=== PATIENT | male | born 1995 | race Hispanic/Latino ===

== ENCOUNTER 2016-10-20 23:31 | Emergency (ER) | payer SELFPAY ==
[2016-10-20 23:45] VITALS: TEMP 98.7; O2SAT 99; BMI 35.8
[2016-10-21] MEDS ORDERED: Sodium Chloride 0.9% 1,000 ML IV STA (00:17)
--- NOTE | 2016-10-21 00:23 | ED PDOC ---
Arrival/HPI - General Chief Complaint: Chest Pain Time Seen by Provider: 10/21/16 00:02 Historian: Patient - History of Present Illness Narrative History of Present Illness (Text): 10/21/16 00:20 21 y/o male, no significant pmh, nkda, c/o lt. sided chest pain and shortness of breath for the past 6 days. Aching pain, aggravated by movement that causes chest pain, shortness of breath causes by the onset of chest pain, no dizziness , non radiating, no numbness or tingling, no other medical or psychological complaints. Past Medical History - Provider Review Nursing Documentation Reviewed: Yes - Infectious Disease Hx of Infectious Diseases: None - Psychiatric Hx Substance Use: No - Anesthesia Hx Anesthesia: No Family/Social History - Physician Review Nursing Documentation Reviewed: Yes Family/Social History: Unknown Family HX Smoking Status: Never Smoked Hx Alcohol Use: No Hx Substance Use: No Allergies/Home Meds Allergies/Adverse Reactions: Allergies No Known Allergies Allergy (Verified 10/20/16 23:45) Home Medications: Home Meds Medication Instructions Recorded Confirmed No Known Home Med 10/21/16 10/21/16 Review of Systems - Review of Systems Constitutional: absent: Fatigue, Fevers Eyes: absent: Vision Changes ENT: absent: Hearing Changes Respiratory: SOB. absent: Cough, Sputum Cardiovascular: Chest Pain Gastrointestinal: absent: Abdominal Pain, Diarrhea, Nausea, Vomiting Musculoskeletal: absent: Arthralgias, Back Pain Skin: absent: Rash, Pruritis, Skin Lesions Neurological: absent: Headache, Dizziness, Focal Weakness, Gait Changes Physical Exam Vital Signs Reviewed: Yes Vital Signs Temp Pulse Resp BP Pulse Ox 10/21/16 02:34 86 16 127/80 99 10/20/16 23:45 98.7 F 79 18 143/96 H 99 Temperature: Afebrile Blood Pressure: Hypertensive Pulse: Regular Respiratory Rate: Normal Appearance: Positive for: Well-Appearing, Non-Toxic, Comfortable Pain Distress: Moderate Mental Status: Positive for: Alert and Oriented X 3 - Systems Exam Head: Present: Atraumatic, Normocephalic Pupils: Present: PERRL Extroacular Muscles: Present: EOMI Conjunctiva: Present: Normal Mouth: Present: Moist Mucous Membranes Neck: Present: Normal Range of Motion Respiratory/Chest: Present: Clear to Auscultation, Good Air Exchange. No: Respiratory Distress, Accessory Muscle Use Cardiovascular: Present: Regular Rate and Rhythm, Normal S1, S2, Other (no pedal edema). No: Murmurs Abdomen: Present: Normal Bowel Sounds. No: Tenderness, Distention, Peritoneal Signs Back: Present: Normal Inspection Upper Extremity: Present: Normal Inspection. No: Cyanosis, Edema Lower Extremity: Present: Normal Inspection. No: Edema Neurological: Present: GCS=15, Speech Normal, Motor Func Grossly Intact, Gait Normal, Memory Normal Skin: Present: Warm, Dry, Normal Color. No: Rashes Psychiatric: Present: Alert, Oriented x 3, Normal Insight, Normal Concentration Medical Decision Making ED Course and Treatment: 10/21/16 00:22 -labs -ekg/cxr -IVF/toradol 10/21/16 01:55 -EKG:NSR @ 81 BPM, no ST elevation or depression, no T wave inversion. -Chest x-ray show no acute findings -Labs show no acute findings -Pt. has no cardiopulmonary complaints in the ER -Discharge home with education on follow up with your own pmd and office clerk assistant for holter monitoring plus echocardiogram, no gym or exercise until clear by your own office clerk assistant and pmd, return to the ER for any new or worsening signs or symptoms. - Lab Interpretations Lab Results: 10/21/16 00:55 10/21/16 00:55 Lab Results 10/21/16 00:55: Free T4 1.02, TSH 3rd Generation 4.70 H 10/21/16 00:55: Sodium 138, Potassium 3.8, Chloride 100, Carbon Dioxide 27, Anion Gap 15, BUN 20, Creatinine 1.0, Est GFR ( Amer) > 60, Est GFR (Non- Af Amer) > 60, Random Glucose 94, Calcium 9.2, Magnesium 2.2, Total Bilirubin 0.6, AST 23, ALT 42, Alkaline Phosphatase 54, Lactate Dehydrogenase 437, Total Creatine Kinase 83, Troponin I < 0.01, Total Protein 7.7, Albumin 4.5, Globulin 3.2, Albumin/Globulin Ratio 1.4 10/21/16 00:55: D-Dimer, Quantitative 0.25 10/21/16 00:55: WBC 8.4, RBC 5.07, Hgb 14.6, Hct 42.5, MCV 83.8, MCH 28.8, MCHC 34.4, RDW 12.6, Plt Count 233, MPV 9.4, Gran % 52.8, Lymph % (Auto) 39.6 H, Jones % (Auto) 5.1, Eos % (Auto) 2.3, Baso % (Auto) 0.2, Gran # 4.40, Lymph # 3.3 , Jones # 0.4, Eos # 0.2, Baso # 0.02 I have reviewed the lab results: Yes Interpretation: No clinic. lab abnormalty - RAD Interpretation Radiology Orders: 10/21/16 00:17 CHEST PORTABLE [RAD] Stat no active disease Water Jet Operator: Radiologist - EKG Interpretation EKG Interpretation (Text): 10/21/16 00:22 NSR @ 81 BPM, no ST elevation or depression, no T wave inversion. Interpreted by ED Physician: Yes Type: 12 lead EKG - Medication Orders Current Medication Orders: Discontinued Medications Sodium Chloride (Sodium Chloride 0.9%) 1,000 mls @ 999 mls/hr IV .Q1H1M STA Stop: 10/21/16 01:17 Last Admin: 10/21/16 01:00 Dose: 999 mls/hr Ketorolac Tromethamine (Toradol) 30 mg IVP STAT STA Stop: 10/21/16 00:20 Last Admin: 10/21/16 01:00 Dose: 30 mg Re-Assess: SUSAN Pain Assessment Document 10/21/16 02:00 SC (Rec: 10/21/16 02:39 [facility]) Pain Reassessment Is this a pain reassessment? Yes Sleep Is patient sleeping during reassessment? No Presence of Pain Presence of Pain No Ketorolac Tromethamine (Toradol) Confirm Administered Dose 30 mg .ROUTE .STK- MED ONE Stop: 10/21/16 04:51 - PA / YEAST FERMENTATION ATTENDANT / Resident Statement MD/DO has reviewed & agrees with the documentation as recorded. Disposition/Present on Arrival - Present on Arrival Any Indicators Present on Arrival: No History of DVT/PE: No History of Uncontrolled Diabetes: No Urinary Catheter: No History of Decub. Ulcer: No History Surgical Site Infection Following: None - Disposition Have Diagnosis and Disposition been Completed?: Yes Diagnosis: Atypical chest pain Disposition: HOME/ ROUTINE Disposition Time: 00:23 Patient Plan: Discharge Condition: GOOD Discharge Instructions (ExitCare): Chest Pain (ED) Additional Instructions: Discharge home with education on follow up with your own pmd and office clerk assistant for holter monitoring plus echocardiogram, no gym or exercise until clear by your own office clerk assistant and pmd, return to the ER for any new or worsening signs or symptoms. Referrals: John Linares, [Non-Staff] - Follow up with primary Edis Fernandez MD [Staff Provider] - Follow up with primary Forms: [employer] (Bengali), WORK NOTE
[2016-10-21 01:13] LABS: BASO # 0.02 K/mm3 (0.0-2.0); BASO % 0.2 % (0.0-3.0); EOS # 0.2 (0.0-0.7); EOS % 2.3 % (1.5-5.0); GRAN % 52.8 % (50.0-68.0); HEMOGLOBIN 14.6 g/dL (14.0-18.0); LYMPH # 3.3 (1.2-3.4); LYMPH % 39.6 % (22.0-35.0); MEAN CELL VOLUME 83.8 fl (80.0-105.0); MEAN CORPUSCULAR HEMOGLOBIN 28.8 pg (25.0-35.0); MEAN CORPUSCULAR HGB CONC 34.4 g/dl (31.0-37.0); MEAN PLATELET VOLUME 9.4 fl (7.0-11.0); MONO # 0.4 (0.1-0.6); MONO % 5.1 % (1.0-6.0); PLATELET COUNT 233 10^3/uL (120.0-450.0); RBC 5.07 10^6/uL (3.5-6.1); RED CELL DISTRIBUTION WIDTH 12.6 % (11.5-14.5); WHITE BLOOD COUNT 8.4 10^3/ul (4.5-11.0)
[2016-10-21 01:20] LABS: ALB/GLOB RATIO 1.4 (1.1-1.8); ALBUMIN 4.5 g/dL (3.0-4.8); ALT/SGPT 42 U/L (7-56); AST/SGOT 23 U/L (15-59); BLOOD UREA NITROGEN 20 mg/dL (7-21); CALCIUM 9.2 mg/dL (8.4-10.5); GFR AFRICAN-AMERICAN > 60; GFR NON-AFRICAN AMERICAN > 60; MAGNESIUM 2.2 mg/dL (1.7-2.2)
[2016-10-21 01:36] LABS: FREE T4 1.02 ng/dL (0.78-2.19); TROPONIN I < 0.01 ng/mL
[2016-10-21 02:35] VITALS: BP 127/80; PULSE 86; RESP 16
--- NOTE | 2016-10-21 08:01 | RAD ---
HISTORY: medical clearance COMPARISON: No prior. FINDINGS: LUNGS: No active pulmonary disease. PLEURA: No significant pleural effusion identified, no pneumothorax apparent. CARDIOVASCULAR: Normal. OSSEOUS STRUCTURES: No significant abnormalities. VISUALIZED UPPER ABDOMEN: Normal. OTHER FINDINGS: None. IMPRESSION: No active disease.
--- NOTE | 2016-10-22 01:08 | CARD ---
APPROVED REPORT EKG Measurement Heart [id number] <Conclusion> Normal sinus rhythm Normal ECG
== END 2016-10-21 02:40 | disposition home or self-care (01) ==
LOC: ED 23:31
DX: R07.89 Other chest pain (principal)
CPT/HCPCS: 71010; 80053; 82550; 83615; 83735; 84439; 84443; 84484; 85025; 85378; 93005; 96361; 96374; 99284; J1885; J7040